=== PATIENT | male | born 1990 | race Two or more races ===

== ENCOUNTER → 2016-08-28 | Outpatient (CLI) | payer BC ==
--- NOTE | 2016-08-28 14:31 | CPEEG ---
[f rep st] ELECTROENCEPHALOGRAM Amended report DATE OF STUDY: 08/28/2016 INTERPRETATION: This EEG contains a probable single generalized spike and wave discharge during sleep. 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 If clinically indicated, a repeat 4-hour video EEG recording to capture sustained sleep to clarify the nature of these findings may be helpful. REPORT: This EEG contains 9-10 Hz alpha activity of posterior head regions. There was no definite abnormal activation at baseline, during photic stimulation or hyperventilation. The patient became drowsy and fell into sustained sleep during the study. During sleep on epoch 151, the patient had a single low amplitude generalized spike and wave discharge. /[id number]/MODL Add acc#, 08/30/16, sal JONES
== END ==
LOC: FCPNEURO 11:00
PROVIDERS: ATTEND Psychiatry & Neurology Neurology
DX: R29.818 Other symptoms and signs involving the nervous system (principal)

== ENCOUNTER → 2016-09-02 | Outpatient (CLI) | payer BC ==
[~2016-09-02] MED LIST: LIDOCAINE 1% 30 ML SDV ONE; NA BICARBONATE 50 MEQ/50 ML VIAL ONE
[2016-09-02 12:30] LABS: CSF COLOR COLORLESS (COLORLESS)
[2016-09-02 12:31] LABS: CSF APPEARANCE CLEAR (CLEAR); CSF SUPERNATANT COLORLESS (COLORLESS); WBC, CSF 2 /mm3 (0-5)
[2016-09-02 12:38] LABS: GLUCOSE 80 mg/dL (70-100)
[2016-09-02 12:42] LABS: CSF APPEARANCE CLEAR (CLEAR); CSF COLOR COLORLESS (COLORLESS); CSF SUPERNATANT COLORLESS (COLORLESS)
[2016-09-02 12:43] LABS: WBC, CSF 4 /mm3 (0-5)
[2016-09-02 12:50] LABS: PROTEIN, CSF 21 mg/dL (12-60)
[2016-09-03 14:48] LABS: VDRL CSF Negative (Negative)
[2016-09-06 14:24] LABS: MISCELLANEOUS TEST See Comments
[2016-09-09 11:47] LABS: ALBUMIN CSF 75.6 mg/dL (<=27.0); ALBUMIN SERUM 4950 mg/dL; CSF IGG INDEX 0.13 (<=0.85); IGG CSF 1.3 mg/dL (<=8.1); IGG SERUM 792 mg/dL (767 - 1590); IGG/ALBUMIN CSF 0.02 (<=0.21); IGG/ALBUMIN SERUM 0.16 (<=0.40)
[2016-09-09 13:41] LABS: INTERPRETATION 3 bands (<4); OLIGOCLONAL BANDING CSF 3 bands; OLIGOCLONAL BANDING SERUM 0 bands
== END ==
LOC: FIMAGING 08:35
PROVIDERS: ATTEND Psychiatry & Neurology Neurology
PROC: 009U3ZX Drainage of Spinal Canal, Percutaneous Approach, Diagnostic (ICD-10-PCS; principal; 2016-09-02)
DX: G44.019 Episodic cluster headache, not intractable (principal); R29.818 Other symptoms and signs involving the nervous system
CPT/HCPCS: 82784-90; 82947-QW; 83916-90; 86592-90

== ENCOUNTER 2016-11-08 12:12 | Emergency (ER) | payer SELFPAY ==
[2016-11-08 12:22] VITALS: BP 150/69; PULSE 61; RESP 16; TEMP 97.7; O2SAT 98
--- NOTE | 2016-11-08 12:53 | EDPHY ---
H & P Stated Complaint: referred from Dr Zamora ringing in ears with increase in depakote Time Seen by Provider: 11/08/16 12:51 - Personal History Current Tetanus/Diphtheria Vaccine: Unsure Current Tetanus Diphtheria and Acellular Pertussis (TDAP): Unsure - Medical/Surgical History Hx Asthma: Yes Hx Chronic Respiratory Disease: No Hx Diabetes: No Hx Cardiac Disease: No Hx Renal Disease: No Hx Cirrhosis: No Hx Alcoholism: No Hx HIV/AIDS: No Hx Splenectomy or Spleen Trauma: No Other PMH: idiopathic epilepsy. asthma - Social History Smoking Status: Current every day smoker Constitutional: Initial Vital Signs Temperature (C) 36.5 C 11/08/16 12:19 Heart Rate 61 11/08/16 12:19 Respiratory Rate 16 11/08/16 12:19 Blood Pressure 150/69 H 11/08/16 12:19 O2 Sat (%) 98 11/08/16 12:19 O2 Delivery Mode Room Air Allergies/Adverse Reactions: milk Allergy (Verified 08/30/16 16:57) Home Medications: Medication Instructions Recorded Albuterol IH PRN 08/30/16 Acyclovir 11/08/16 Depakote 11/08/16 Medical Decision Making ED Course/Re-evaluation: CHIEF COMPLAINT: Depakote side effects HISTORY OF PRESENT ILLNESS: The patient is a 26 y/o male arriving with his friend at the referral of his neurologist, Dr. Zamora, for possible Depakote side effects onset around November 01, 1 week ago. He has a history of seizure disorder and has been tapering off Keppra and on to Depakote over the last few days. He began to experience intermittent nausea, vomiting, photophobia, chills, mood swings, and ear ringing that have become more frequent and more intense as his Depakote dose increased. He is currently taking 750mg TID of Keppra. He has had difficulty keeping down food due to vomiting, but is able to drink fluids. He denies fever, weakness, numbness, abdominal pain, dyspnea, headache, chest pain , diarrhea, urinary symptoms, balance issues. REVIEW OF SYSTEMS: A 10 point review of systems was performed and is negative with the exception of the elements mentioned in the history of present illness. PHYSICAL EXAM: HR, BP, O2 Sat, RR. Temp noted General Appearance: Alert, well hydrated, appropriate, and non-toxic appearing. Head: Atraumatic without scalp tenderness or obvious injury Eyes: Pupils equal, round, reactive to light and accommodation, EOMI, no trauma , no injection. Nose: Atraumatic, no rhinorrhea, clear. Throat: mucus membranes moist. Neck: Supple, nontender, no lymphadenopathy. Respiratory: No retractions, no distress, no wheezes, and no accessory muscle use. Lungs are clear to auscultation bilaterally. Cardiovascular: Regular rate and rhythm, no murmurs, rubs, or gallops. Good capillary refill all extremities. Gastrointestinal: Abdomen is soft, nontender, non-distended, no masses, no rebound, no guarding, no peritoneal signs. Musculoskeletal: Normal active ROM of all extremities, atraumatic. Neurological: Alert, appropriate, and interactive. Nonfocal neuro exam. Skin: No rashes, good turgor, no nodules on palpation. Past medical history: Seizure disorder Past surgical history: Denies Family history: Noncontributory Social history: Friend at bedside. Smoker. Neurologist: Dr. Zamora DIFFERENTIAL DIAGNOSIS: The differential diagnosis for the patient's nausea, vomiting, and tinnitus included but was not limited to Depakote side effect, gastroenteritis, gastritis, peripheral causes, central causes including CVA, TIA , electrolyte abnormalities and dehydration, cardiogenic causes, atypical causes like migraine syndrome. MEDICAL DECISION MAKING: This is a 26 y/o male with a history of seizure disorder who is currently tapering off Keppra and onto Depakote presenting with intermittent vomiting, tinnitus, and mood swings since starting Depakote this month. He is well- appearing and his neuro exam is completely normal. I reviewed lab work from Dr. Zamora's office from this morning. Labs were all completely normal. Patient's symptoms are consistent with known Depakote side effects and their severity is correlated with his increasing Depakote dose Plan to consult Dr. Zamora regarding management of patient's Depakote. 1310: Consulted with Dr. Zamora, neurologist. She reports the patient is changing medications due to difficulty with insurance coverage for Keppra. She agrees with my assessment that patient's symptoms are likely due to the Depakote. She would like patient to back down to the previous dosage of 500mg TID and have him follow up with her next week as planned. I discussed this with the patient. He is comfortable with this plan. He will receive a Zofran prepack for nausea and vomiting. Strict return precautions given. - Data Points Medications Given: Discontinued Medications Ondansetron HCl (Zofran Odt 4 Mg Prepack#2) 1 btl TAKECOCO EDNOW ONE Stop: 11/08/16 13:29 Last Admin: 11/08/16 13:35 Dose: 1 btl Departure - Departure Disposition: Home, Routine, Self-Care Clinical Impression: Medication side effect Instructions: Ondansetron (By mouth), Divalproex (By mouth) Additional Instructions: 1. Continue taking your Depakote. Resume the 500mg three times daily dose of Depakote. 2. Follow up with Dr. Zamora next week as planned. 3. Use Zofran as prescribed when needed for nausea and vomiting. 4. Return to the ED for severe headache, weakness or numbness, fever, or other worsening of condition. Referrals: Kendall Brunner MD [Primary Care Provider] - As per Instructions Cee Zamora DO [Non Staff and Non MD] - As per Instructions Report Scribed for: Germain Huber Report Scribed by: Ignacia Rome Date of Report: 11/08/16 Time of Report: 13:04
[2016-11-08] MEDS ORDERED: ONDANSETRON 4MG PREPACK#2 BTL TAKEHOME ONE (13:28)
== END 2016-11-08 13:52 | disposition home or self-care (01) ==
DX: R11.2 Nausea with vomiting, unspecified (principal); T42.6X5A Adverse effect of other antiepileptic and sedative-hypnotic drugs, initial encounter; J45.909 Unspecified asthma, uncomplicated; F17.200 Nicotine dependence, unspecified, uncomplicated